=== PATIENT | male | born 1970 | race Caucasian/White ===

== ENCOUNTER 2021-11-12 15:45 | Emergency (ER) | payer OTHER ==
[~2021-11-12] VITALS: Ht 180.3 cm; Wt 100.7 kg
[2021-11-12 15:56] VITALS: BP 144/67
--- NOTE | 2021-11-12 15:56 | NUR ---
PT AMBULATED TO BED 11.
--- NOTE | 2021-11-12 16:29 | NUR ---
50 YO MALE BIB SELF C/O PENILE PAIN AND SWELLING D/T FORESKIN RASH. PT STATES PCP PRESCRIBED AN ANTIFUNGAL CREAM 5MOS AGO; NO RELIEF. PT DENIES PAIN AT THIS TIME. PT STATES 10/10 BURNING PAIN WHEN PULLING BACK FORESKIN TO URINATE. PT DENIES DYSURIA AND HEMAURIA AT THIS TIME. PT SPOKE TO ERMD AT BEDSIDE AND STATED HE IS NONCOMPLIANT WITH GLUCOSE CHECKS AND HAS LOST OVER 80LBS IN THE PAST 6MOS. PT DENIES TESTICULAR SWELLING. PMH: DM, HTN, FUNGAL INFECTION IN [place] (5MOS) ALLERGIES: VASOTEC (SWELLING, REDNESS), MUCINEX (RASH, SWELLING) MEDS: TOPICAL FUNGAL INFECTION CREAM, METFORMIN CHARTED BY: RAUL ORTEGA
[2021-11-12] MEDS ORDERED: NACL 0.9% 1,000 ML IV SCH (16:30)
[2021-11-12 16:57] LABS: BASOPHILS % (AUTO) 0.1 % (0.0-2.0); EOSINOPHILS # (AUTO) 0.1 K/uL (0-0.4); EOSINOPHILS % (AUTO) 1.1 % (0.0-4.0); HEMATOCRIT 45.4 % (36-52); HEMOGLOBIN 15.6 g/dL (12.0-18.0); LYMPHOCYTES # (AUTO) 2.3 K/uL (2.0-11.5); LYMPHOCYTES % (AUTO) 30.2 % (20.5-51.1); MEAN CORPUSCULAR HEMOGLOBIN 32 pg (27-31); MEAN CORPUSCULAR HGB CONC 34 g/dL (33-37); MEAN CORPUSCULAR VOLUME 92.7 fL (80-94); MONOCYTES # (AUTO) 0.6 K/uL (0.8-1.0); MONOCYTES % (AUTO) 7.8 % (1.7-9.3); NEUTROPHILS # (AUTO) 4.7 K/uL (1.8-7.7); NEUTROPHILS % (AUTO) 60.8 % (42.2-75.2); PLATELET COUNT (AUTO) 318 K/uL (140-450); RED CELL DISTRIBUTION WIDTH 12.7 % (11.6-13.7); WHITE BLOOD COUNT (AUTO) 7.8 K/uL (4.8-10.8)
[2021-11-12 17:21] LABS: CARBON DIOXIDE 29.4 mmol/L (21-32); CREATININE 0.8 mg/dL (0.6-1.3)
[2021-11-12] MEDS ORDERED: CLOT1CRE83 TP (17:31)
[2021-11-12] MEDS ORDERED: BACTO TP (17:31)
[2021-11-12 17:42] LABS: ANION GAP 12.7 (8-16); POTASSIUM 4.1 mmol/L (3.5-5.1)
--- NOTE | 2021-11-12 18:00 | NUR ---
Patient appears to be resting comfortably in bed. Vital Signs within normal limits. Respirations even and unlabored.
--- NOTE | 2021-11-12 18:38 | NUR ---
Patient discharged with v/s stable. Written and verbal after care instructions given and explained. Patient alert, oriented and verbalized understanding of instructions. Ambulatory with steady gait. All questions addressed prior to discharge. ID band removed. Patient advised to follow up with PMD. Rx of mupirocin, clotimazole (sent) given. Patient educated on indication of medication including possible reaction and side effects. Opportunity to ask questions provided and answered.
[2021-11-12 18:39] VITALS: BP 139/86
[2021-11-12 20:03] LABS: APPEARANCE,URINE CLEAR (CLEAR); BILIRUBIN,URINE NEGATIVE (NEGATIVE); BLOOD, URINE NEGATIVE (NEGATIVE); COLOR,URINE YELLOW (YELLOW); LEUKOCYTE ESTERASE ,URINE NEGATIVE (NEGATIVE); NITRITE, URINE NEGATIVE (NEGATIVE); UGLUCOSE 3+ (NEGATIVE)
== END 2021-11-12 18:38 | disposition home or self-care (01) ==
LOC: MED 15:45
DX: N47.6 Balanoposthitis (principal); E11.65 Type 2 diabetes mellitus with hyperglycemia; Z88.8 Allergy status to other drugs, medicaments and biological substances; Z79.84 Long term (current) use of oral hypoglycemic drugs; Z79.899 Other long term (current) drug therapy; Z98.890 Other specified postprocedural states
CPT/HCPCS: 36415; 80048; 81003; 85025; 96360; 99283; J7030

== ENCOUNTER 2023-11-29 16:42 | Inpatient (IN) | payer OTHER ==
[~2023-11-29] VITALS: Ht 177.8 cm; Wt 95.5 kg
[~2023-11-29 16:42] MED LIST: BACTO TP; CLOT1CRE83 TP
[2023-11-29 17:03] VITALS: BP 171/106; PULSE 122; RESP 24; TEMP 98.2; O2SAT 99
[2023-11-29] MEDS: ONDANSETRON 4 MG/2 ML VIAL IVP ONE (18:02)
[2023-11-29] MEDS: NACL 0.9% 1,000 ML IV ONE ×3 (18:02→23:06)
[2023-11-29] MEDS: KETOROLAC 30 MG/ML VIAL IVP ONE (18:03)
[2023-11-29 18:10] LABS: BASOPHILS % (AUTO) 0.3 % (0.0-2.0); EOSINOPHILS % (AUTO) 0.1 % (0.0-4.0); LYMPHOCYTES # (AUTO) 0.6 K/uL (2.0-11.5); LYMPHOCYTES % (AUTO) 13.8 % (20.5-51.1); MEAN CORPUSCULAR HEMOGLOBIN 31 pg (27-31); MEAN CORPUSCULAR HGB CONC 35 g/dL (33-37); MEAN CORPUSCULAR VOLUME 90.2 fL (80-94); MONOCYTES # (AUTO) 0.7 K/uL (0.8-1.0); MONOCYTES % (AUTO) 16.9 % (1.7-9.3); NEUTROPHILS % (AUTO) 68.9 % (42.2-75.2); PLATELET COUNT (AUTO) 106 K/uL (140-450); RED CELL DISTRIBUTION WIDTH 12.8 % (11.6-13.7); WHITE BLOOD COUNT (AUTO) 4.3 K/uL (4.8-10.8)
[2023-11-29 18:20] LABS: INR 1.06 (0.8-1.2); PARTIAL THROMBOPLASTIN TIME 30.5 secs (22-35.6); PROTHROMBIN TIME 11.1 secs (10.8-13.4)
[2023-11-29 18:32] LABS: ANION GAP 27.3 (8-16); CALCIUM 8.7 mg/dL (8.5-10.1); CARBON DIOXIDE 11.7 mmol/L (21-32); CREATININE 0.9 mg/dL (0.6-1.3)
[2023-11-29 18:39] LABS: ALANINE AMINOTRANSFERASE 110 U/L (12-78); ALBUMIN 3.3 g/dL (3.4-5.0); ALKALINE PHOSPHATASE 170 U/L (50-136); ASPARTATE AMINOTRANSFERASE 51 U/L (15-37); BILIRUBIN,DIRECT 0.4 mg/dL (0.0-0.3); TOTAL BILIRUBIN 0.9 mg/dL (0.0-1.0); TOTAL PROTEIN, SERUM 7.8 g/dL (6.4-8.2)
[2023-11-29 19:45] VITALS: O2SAT 98
[2023-11-29 20:04] LABS: AMPHETAMINE, URINE NEGATIVE ng/ml (NEG <=1000); BARBITURATE, URINE NEGATIVE ng/ml (NEG <=200); BENZODIAZEPINE, URINE NEGATIVE ng/mL (NEG <=200); CANNABINOID, URINE NEGATIVE ng/mL (NEG <=50); COCAINE, URINE NEGATIVE ng/mL (NEG <=300)
[2023-11-29 20:05] LABS: OPIATE, URINE NEGATIVE ng/mL (NEG <=2000); PHENCYCLIDINE SCREEN,URINE NEGATIVE ng/mL (NEG <=25)
[2023-11-29] MEDS: INSULIN REGULAR, HUMAN 100 UNIT/ML VIAL IVP ONE (22:08)
[2023-11-29] MEDS: KCL 20 MEQ IN 100 mL PREMIX 100 ML IV ONE (22:30)
[2023-11-29 22:47] LABS: APPEARANCE,URINE CLEAR (CLEAR); BILIRUBIN,URINE 1+ (NEGATIVE); BLOOD, URINE 1+ (NEGATIVE); COLOR,URINE YELLOW (YELLOW); LEUKOCYTE ESTERASE ,URINE NEGATIVE (NEGATIVE); NITRITE, URINE NEGATIVE (NEGATIVE); PROTEIN,URINE 2+ (NEGATIVE); UGLUCOSE 2+ (NEGATIVE); UROBILINOGEN,URINE 0.2 EU/dL (0.2 - 1)
[2023-11-29 22:57] LABS: ICTOTEST POSITIVE (NEGATIVE)
[2023-11-29 22:58] LABS: BACTERIA,URINE >30 (MANY) /HPF (None Seen); MUCUS,URINE 1+ /LPF (None Seen); RBC,URINE 0-5 /HPF (0-5); SQUAMOUS EPITHELIAL CELL,UR 0-3 (FEW) /LPF (0-3 (FEW)); WBC,URINE 0-5 /HPF (0-5)
[2023-11-29] MEDS: DEXT 5% /NACL 0.9% 1,000 ML IV ONE (23:25)
[2023-11-29] MEDS: INSULIN REGULAR, HUMAN 100 UNIT in NACL 0.9% 100 ML IV ONE (23:40)
[2023-11-29] MEDS ORDERED: DEXTROSE 50% 50 ML SYR IVP PRN (23:55)
[2023-11-29] MEDS ORDERED: LORazepam 1 MG TAB PO PRN (23:55)
[2023-11-29] MEDS ORDERED: ONDANSETRON 4 MG/2 ML VIAL IVP PRN (23:55)
[2023-11-30] VITALS (15 sets, daily range): BP systolic 117–161; BP diastolic 63–90; PULSE 94–123; RESP 15–40; TEMP 99.2–102.2; O2SAT 95–99
[2023-11-30 00:07] LABS: FLU A ANTIGEN negative (NEGATIVE); FLU B ANTIGEN NEGATIVE (NEGATIVE)
[2023-11-30] MEDS ORDERED: cefTRIAXone 1,000 MG VIAL ONE (00:09)
[2023-11-30 00:30] LABS: ANION GAP 24.4 (8-16); CALCIUM 7.9 mg/dL (8.5-10.1); CARBON DIOXIDE 12.8 mmol/L (21-32); CREATININE 0.9 mg/dL (0.6-1.3); POTASSIUM 3.2 mmol/L (3.5-5.1)
[2023-11-30 00:53] LABS: MAGNESIUM 1.7 mg/dL (1.8-2.4); PHOSPHORUS 1.9 mg/dL (2.5-4.9)
[2023-11-30 00:54] LABS: THYROID STIMULATING HORMONE 0.39 uIU/mL (0.34-3.74)
[2023-11-30 00:55] LABS: FREE T4 (FREE THYROXINE) 1.31 ng/dL (0.76-1.46)
[2023-11-30] MEDS: BLOOD GLUCOSE MONITORING 1 DEV DEV FS SCH (01:04)
[2023-11-30] MEDS: INSULIN REGULAR, HUMAN 100 UNIT in NACL 0.9% 100 ML IV SCH (01:54)
[2023-11-30] MEDS: ZOLPIDEM 5 MG TAB PO PRN (03:20)
[2023-11-30] MEDS: HYDROcodone/APAP 5/325 MG 1 TAB TAB PO PRN (04:09)
[2023-11-30 04:30] LABS: ANION GAP 18.3 (8-16); CALCIUM 7.7 mg/dL (8.5-10.1); CARBON DIOXIDE 16.9 mmol/L (21-32); CREATININE 0.8 mg/dL (0.6-1.3); POTASSIUM 3.2 mmol/L (3.5-5.1)
[2023-11-30 04:34] LABS: MAGNESIUM 1.6 mg/dL (1.8-2.4)
[2023-11-30 04:40] LABS: PHOSPHORUS 0.8 mg/dL (2.5-4.9)
[2023-11-30] MEDS: MAG SULF 2000 MG/WATER PREMIX 50 ML IV ONE (06:32)
[2023-11-30] MEDS: POTASSIUM CHLORIDE 10 MEQ TABER PO ONE (06:33)
[2023-11-30] MEDS: SODIUM PHOS / POTASSIUM PHOS 1 PKT PDR PO ONE (06:33)
[2023-11-30 09:29] LABS: BASOPHILS % (AUTO) 0.2 % (0.0-2.0); HEMATOCRIT 38.2 % (36-52); HEMOGLOBIN 13.7 g/dL (12.0-18.0); LYMPHOCYTES # (AUTO) 0.6 K/uL (2.0-11.5); LYMPHOCYTES % (AUTO) 15.6 % (20.5-51.1); MEAN CORPUSCULAR HEMOGLOBIN 32 pg (27-31); MEAN CORPUSCULAR HGB CONC 36 g/dL (33-37); MEAN CORPUSCULAR VOLUME 88.9 fL (80-94); MONOCYTES # (AUTO) 0.5 K/uL (0.8-1.0); MONOCYTES % (AUTO) 12.4 % (1.7-9.3); NEUTROPHILS # (AUTO) 2.7 K/uL (1.8-7.7); NEUTROPHILS % (AUTO) 71.8 % (42.2-75.2); PLATELET COUNT (AUTO) 90 K/uL (140-450); WHITE BLOOD COUNT (AUTO) 3.7 K/uL (4.8-10.8)
[2023-11-30 09:54] LABS: ANION GAP 16.3 (8-16); CALCIUM 7.8 mg/dL (8.5-10.1); CARBON DIOXIDE 16.6 mmol/L (21-32); CREATININE 0.7 mg/dL (0.6-1.3)
[2023-11-30 09:55] LABS: POTASSIUM 2.9 mmol/L (3.5-5.1)
[2023-11-30 09:59] LABS: PHOSPHORUS 1.1 mg/dL (2.5-4.9)
[2023-11-30] MEDS: POTASSIUM PHOSPHATE 15 MM in NACL 0.9% 250 ML IV ONE (11:00)
[2023-11-30] MEDS: ACETAMINOPHEN 325 MG TAB PO PRN (11:04)
[2023-11-30] MEDS: DEXT 5% / NACL 0.45% 1,000 ML IV SCH (11:05)
[2023-11-30] MEDS: NACL 0.9% 1,000 ML IV SCH (11:12)
[2023-11-30 12:36] LABS: ANION GAP 12.6 (8-16); CALCIUM 7.4 mg/dL (8.5-10.1); CARBON DIOXIDE 19.1 mmol/L (21-32); CREATININE 0.7 mg/dL (0.6-1.3)
[2023-11-30 12:39] LABS: POTASSIUM 2.7 mmol/L (3.5-5.1)
[2023-11-30 13:53] LABS: MAGNESIUM 1.9 mg/dL (1.8-2.4)
[2023-11-30 13:55] LABS: PHOSPHORUS 0.7 mg/dL (2.5-4.9)
[2023-11-30 16:59] LABS: CALCIUM 7.5 mg/dL (8.5-10.1); CARBON DIOXIDE 19.8 mmol/L (21-32); CREATININE 0.7 mg/dL (0.6-1.3)
[2023-11-30 17:00] LABS: POTASSIUM 2.8 mmol/L (3.5-5.1)
[2023-11-30] MEDS: KCL 20 MEQ IN 100 mL PREMIX 200 ML IV PRN (17:25)
[2023-11-30] MEDS: MEDS-TO-BEDS MC SCH (20:55)
[2023-11-30] MEDS: METOPROLOL 25 MG TAB PO SCH (20:55)
[2023-11-30 21:01] LABS: ANION GAP 11.5 (8-16); CALCIUM 7.7 mg/dL (8.5-10.1); CARBON DIOXIDE 21.2 mmol/L (21-32); CREATININE 0.7 mg/dL (0.6-1.3)
[2023-11-30 21:07] LABS: POTASSIUM 2.7 mmol/L (3.5-5.1)
[2023-11-30] MEDS: SODIUM PHOS / POTASSIUM PHOS 1 PKT PDR PO SCH (22:01)
[2023-11-30] MEDS: SODIUM PHOS / POTASSIUM PHOS 1 PKT PDR ONE (22:06)
[2023-12-01] VITALS (22 sets, daily range): BP systolic 96–131; BP diastolic 56–80; PULSE 83–115; RESP 16–25; TEMP 97.9–101.2; O2SAT 94–98
[2023-12-01 00:31] LABS: ANION GAP 11.4 (8-16); CALCIUM 7.6 mg/dL (8.5-10.1); CARBON DIOXIDE 21.3 mmol/L (21-32); CREATININE 0.7 mg/dL (0.6-1.3)
[2023-12-01 00:33] LABS: POTASSIUM 2.7 mmol/L (3.5-5.1)
[2023-12-01] MEDS: INSULIN LANTUS 100 UNITS/ML 10 ML VIAL SUBQ ONE (01:13)
[2023-12-01 05:44] LABS: BASOPHILS % (AUTO) 0.3 % (0.0-2.0); EOSINOPHILS % (AUTO) 0.3 % (0.0-4.0); HEMATOCRIT 37.5 % (36-52); HEMOGLOBIN 13.6 g/dL (12.0-18.0); LYMPHOCYTES # (AUTO) 0.4 K/uL (2.0-11.5); LYMPHOCYTES % (AUTO) 9.2 % (20.5-51.1); MEAN CORPUSCULAR HEMOGLOBIN 32 pg (27-31); MEAN CORPUSCULAR HGB CONC 36 g/dL (33-37); MEAN CORPUSCULAR VOLUME 86.8 fL (80-94); MONOCYTES # (AUTO) 0.6 K/uL (0.8-1.0); MONOCYTES % (AUTO) 15.4 % (1.7-9.3); NEUTROPHILS % (AUTO) 74.8 % (42.2-75.2); PLATELET COUNT (AUTO) 78 K/uL (140-450); RED BLOOD CELL COUNT(AUTO) 4.32 MIL/uL (4.20-6.10); RED CELL DISTRIBUTION WIDTH 12.9 % (11.6-13.7)
[2023-12-01 06:28] LABS: MAGNESIUM 1.8 mg/dL (1.8-2.4); PHOSPHORUS 1.5 mg/dL (2.5-4.9)
[2023-12-01 06:29] LABS: ANION GAP 15.7 (8-16); CALCIUM 7.7 mg/dL (8.5-10.1); CARBON DIOXIDE 20.4 mmol/L (21-32); CREATININE 0.6 mg/dL (0.6-1.3); POTASSIUM 3.1 mmol/L (3.5-5.1)
[2023-12-01] MEDS: BLOOD GLUCOSE MONITORING 1 DEV DEV FS SCH (07:36)
[2023-12-01] MEDS: INSULIN LANTUS 100 UNITS/ML 10 ML VIAL SUBQ SCH (08:23)
[2023-12-01] MEDS: INSULIN LISPRO SLIDING SCALE 100 UNITS/ML VIAL SUBQ PRN (08:25)
[2023-12-01 09:06] LABS: T4 (THYROXINE) 8.1 ug/dL (4.5-12.0)
[2023-12-01 13:59] LABS: HEMOGLOBIN A1C 15.4 % (4.8-5.6)
[2023-12-01] MEDS ORDERED: SLOMAG PO (16:33)
[2023-12-01] MEDS ORDERED: ASPI-1822 PO (16:33)
[2023-12-01] MEDS ORDERED: LOSA-272 PO (16:33)
[2023-12-01] MEDS ORDERED: CINN1CAP PO (16:33)
[2023-12-01] MEDS ORDERED: METF-346 PO (16:33)
[2023-12-01] MEDS ORDERED: MULT-2253 PO (16:33)
[2023-12-01] MEDS ORDERED: LACTULOSE 20 GM/30 ML UDC PO PRN (19:15)
[2023-12-01] MEDS ORDERED: METF-713 PO (19:21)
[2023-12-01] MEDS ORDERED: GLIP5TER PO (19:21)
[2023-12-01] MEDS ORDERED: LANTUS SUBQ (19:21)
[2023-12-01] MEDS: DOCUSATE SODIUM 100 MG GELCAP PO SCH (21:00)
[2023-12-02 04:00] VITALS: BP 119/75; PULSE 96; RESP 18; TEMP 99.2; O2SAT 96
[2023-12-02 07:55] LABS: ANION GAP 13.3 (8-16); CALCIUM 7.9 mg/dL (8.5-10.1); CARBON DIOXIDE 25.7 mmol/L (21-32); CREATININE 0.7 mg/dL (0.6-1.3)
[2023-12-02 08:00] VITALS: BP 96/59; PULSE 79; RESP 18; TEMP 97; O2SAT 95
[2023-12-02] MEDS: POTASSIUM CHLORIDE 40 MEQ, LIDOCAINE 1% 25 MG in NACL 0.9% 250 ML IV ONE (10:40)
[2023-12-02 15:48] VITALS: BP 96/59; PULSE 79; RESP 18; TEMP 97
[2023-12-02 16:00] VITALS: BP 115/80; PULSE 99; RESP 20; TEMP 97.6; O2SAT 97
== END 2023-12-02 17:05 | disposition home or self-care (01) | DRG 420 ==
LOC: MED 16:42 → MMU 23:59 → MIC 11-30 07:53 → MTU 12-01 21:30
PROVIDERS: ADMIT Hospitalist; ATTEND Hospitalist
DX: E11.10 Type 2 diabetes mellitus with ketoacidosis without coma (principal); E44.0 Moderate protein-calorie malnutrition; E83.51 Hypocalcemia; I10 Essential (primary) hypertension; Z20.822 Contact with and (suspected) exposure to COVID-19; Z88.0 Allergy status to penicillin; Z88.8 Allergy status to other drugs, medicaments and biological substances; Z86.73 Personal history of transient ischemic attack (TIA), and cerebral infarction without residual deficits; Z79.4 Long term (current) use of insulin; Z68.30 Body mass index [BMI] 30.0-30.9, adult
CPT/HCPCS: 36415; 70450; 71045; 71275; 74018; 80048; 80076; 80305; 81001; 82948; 83036; 83735; 83880; 84100; 84436; 84439; 84443; 84479; 84484; 85025; 85379; 85610; 85730; 87040; 87081; 87086; 93005; 96361; 96374; 96375; 99291; J0696; J1644; J1815; J1885; J2001; J2405; J3475; J3480; J7030; J7060; Q9967

== ENCOUNTER 2024-01-04 11:52 | Emergency (ER) | payer OTHER ==
[~2024-01-04] VITALS: Ht 177.8 cm; Wt 99.8 kg
[~2024-01-04 11:52] MED LIST changes: +ASPI-1822 PO; -BACTO TP; +CINN1CAP PO; -CLOT1CRE83 TP; +GLIP5TER PO; +LANTUS SUBQ; +LOSA-272 PO; +METF-713 PO; +MULT-2253 PO; +SLOMAG PO
[2024-01-04 12:19] VITALS: BP 119/81; PULSE 99; RESP 16; TEMP 98.1; O2SAT 98
[2024-01-04 13:08] LABS: BASOPHILS % (AUTO) 0.6 % (0.0-2.0); EOSINOPHILS # (AUTO) 0.2 K/uL (0-0.4); EOSINOPHILS % (AUTO) 2.3 % (0.0-4.0); HEMATOCRIT 35.5 % (36-52); LYMPHOCYTES # (AUTO) 2.3 K/uL (2.0-11.5); MEAN CORPUSCULAR HEMOGLOBIN 31 pg (27-31); MEAN CORPUSCULAR HGB CONC 34 g/dL (33-37); MEAN CORPUSCULAR VOLUME 91.7 fL (80-94); MONOCYTES # (AUTO) 0.5 K/uL (0.8-1.0); MONOCYTES % (AUTO) 6.7 % (1.7-9.3); NEUTROPHILS # (AUTO) 4.1 K/uL (1.8-7.7); NEUTROPHILS % (AUTO) 58.4 % (42.2-75.2); PLATELET COUNT (AUTO) 495 K/uL (140-450); RED BLOOD CELL COUNT(AUTO) 3.87 MIL/uL (4.20-6.10); RED CELL DISTRIBUTION WIDTH 14.4 % (11.6-13.7); WHITE BLOOD COUNT (AUTO) 7.1 K/uL (4.8-10.8)
[2024-01-04 13:21] LABS: ANION GAP 14.1 (8-16); CALCIUM 9.9 mg/dL (8.5-10.1); CARBON DIOXIDE 28.3 mmol/L (21-32); CREATININE 0.7 mg/dL (0.6-1.3); POTASSIUM 4.4 mmol/L (3.5-5.1)
[2024-01-04 13:27] LABS: ALBUMIN 3.7 g/dL (3.4-5.0); BILIRUBIN,DIRECT 0.1 mg/dL (0.0-0.3); TOTAL BILIRUBIN 0.5 mg/dL (0.0-1.0); TOTAL PROTEIN, SERUM 8.5 g/dL (6.4-8.2)
[2024-01-04] MEDS ORDERED: BISA-188 PO (13:48)
[2024-01-04] MEDS ORDERED: MAGN296S48 PO (13:55)
== END 2024-01-04 14:10 | disposition home or self-care (01) ==
LOC: MED 11:52
DX: K59.00 Constipation, unspecified (principal); E11.9 Type 2 diabetes mellitus without complications; I10 Essential (primary) hypertension; Z79.899 Other long term (current) drug therapy; Z79.82 Long term (current) use of aspirin; Z79.4 Long term (current) use of insulin; Z88.8 Allergy status to other drugs, medicaments and biological substances; Z88.0 Allergy status to penicillin
CPT/HCPCS: 36415; 74018; 80048; 80076; 83690; 85025; 99284